=== PATIENT | female | born 1955 | race Caucasian/White ===

== ENCOUNTER → 2017-06-28 | Outpatient (CLI) | payer OTHER ==
[~2017-06-28] MED LIST: CELE-1 PO; HYDR-4309 PO; IOPAMIDOL 76% 100 ML INFUS BTL 100 ML ONE; LOR5/325 PO; NS 0.9% 50 ML VIAL 50 ML ONE; PROP40TA45 PO; SPIR25TA78 PO
--- NOTE | 2017-06-28 17:36 | RADIOLOGY IMAGING REPORT ---
FACILITY: [facility] [place] PATIENT NAME: Candice Betancourt : 1955 MR: [id number] V: [id number] EXAM DATE: ORDERING PHYSICIAN: HUNG TENORIO TECHNOLOGIST: Location: [facility] Patient: Candice Betancourt : 1955 Visit/Account:[id number] Date of Sevice: 06/28/2017 CT abdomen and pelvis with IV contrast Indication: Abdominal pain, distention and nausea. Comparison: None available. . Technique: Axial CT images were obtained through the abdomen and pelvis during injection of nonioni c iodinated intravenous contrast. Reformatted coronal and sagittal images were also obtained. One of the following dose optimization techniques was utilized in the performance of this exam: Autom ated exposure control; adjustment of the mA and/or kV according to the patient's size; or use of an i terative reconstruction technique. Specific details can be referenced in the facility's radiology C T exam operational policy. Contrast: 100 ml of Isovue-370 IV contrast. Findings: Lower lung singh: Limited views lower lung field are unremarkable. Liver: No focal parenchymal abnormality of the liver. Biliary: Status post cholecystectomy with clips in gallbladder fossa. The ventricular system is unrem arkable postcholecystectomy. Pancreas: Normal appearance. Spleen: Normal appearance. Adrenal glands: Unremarkable. Kidneys / retroperitoneum: No evidence of nephrolithiasis or hydronephrosis no discrete renal lesions . Bowel / peritoneum / mesenteries: There are couple diverticula seen along the descending sigmoid colo n without pericolonic inflammation. The remaining gastrointestinal tract visualized within normal lombardo its. The appendix not visualized. No secondary signs of appendicitis. No free air, free fluid, fluid collections or areas of inflammation. Small umbilical hernia containin g fat. Lymph node assessment: No pathologic adenopathy identified. Pelvic structures: Appear unremarkable. Vessels: No significant atherosclerotic calcifications seen throughout a nonaneurysmal abdominal aort a and branches. Musculoskeletal / Body wall: No acute or aggressive osseous abnormality. Mild degenerative changes sp ine. IMPRESSION: 1. No acute intra-abdominal abnormality 2. Diverticulosis without radiographic indication of diverticulitis. Report Dictated By: Geovany Slade at 06/28/2017 5:26 PM Report E-Signed By: Geovany Slade at 06/28/2017 5:32 PM WSN:[id number]
== END ==
LOC: CT 15:07
PROVIDERS: ATTEND Family Medicine
DX: K57.30 Diverticulosis of large intestine without perforation or abscess without bleeding (principal); Z90.49 Acquired absence of other specified parts of digestive tract
CPT/HCPCS: 74177; J7050; Q9967

== ENCOUNTER → 2017-07-04 | Outpatient (CLI) | payer OTHER ==
[~2017-07-04] MED LIST changes: -IOPAMIDOL 76% 100 ML INFUS BTL 100 ML ONE; -NS 0.9% 50 ML VIAL 50 ML ONE
--- NOTE | 2017-07-05 08:26 | RADIOLOGY IMAGING REPORT ---
FACILITY: [facility] PATIENT NAME: FLO TRAN : [id number] MR: [id number] V: [id number] EXAM DATE: [id number] ORDERING PHYSICIAN: HUNG TENORIO TECHNOLOGIST: Fariha Pretty PROCEDURE:BILATERAL DIGITAL SCREENING MAMMOGRAM WITH CAD ASSISTED INTERPRETATION AND 3D BREAST TOMOSYNTHESIS. COMPARISON:Prior mammograms dated 03/20/16, 06/03/14 and 05/16/11. INDICATIONS:SCREENING FINDINGS: A moderate amount of fibroglandular tissue is seen throughout the breasts. The parenchymal pattern has remained stable when allowing for difference in mammographic technique and patient positioning. There is no evidence of malignant appearing mass, malignant appearing calcification or secondary sign of malignancy in either breast. DIAGNOSTIC CATEGORY 2--BENIGN FINDING. RECOMMENDATIONS: ROUTINE MAMMOGRAM AND CLINICAL EVALUATION. IMPRESSION: Bi-RADS 2: No significant abnormality is seen. Images were reviewed with R2CAD and 3D breast tomosynthesis. Dictated by: Justine Disla M.D. on 07/04/2017 at 16:09 Transcribed by: GIBSON on 07/04/2017 at 18:25 Approved by: Justine Disla M.D. on 07/05/2017 at 8:25 [facility]
== END ==
LOC: MAMO 00:47
PROVIDERS: ATTEND Family Medicine
DX: Z12.31 Encounter for screening mammogram for malignant neoplasm of breast (principal)
CPT/HCPCS: 77063; 77067

== ENCOUNTER → 2017-10-23 | Outpatient (CLI) | payer OTHER ==
[~2017-10-23] MED LIST changes: +LOSA50TA68 PO; +MILK175C PO; +TRIA1CAP85 PO
--- NOTE | 2017-10-23 10:58 | EKG ---
[place] [facility] [place] NAME: FLO TRAN : [id number] MR: [id number] V: [id number] EXAM DATE: ORDERING PHYSICIAN: ELLE BETANCOURT TECHNOLOGIST: ASHIA Test Reason : DIZZINESS Blood Pressure : / mmHG Vent. Rate : 063 BPM Atrial Rate : 063 BPM P-R Int : 214 ms QRS Dur : 082 ms QT Int : 438 ms P-R-T Axes : 029 007 058 degrees QTc Int : 448 ms Sinus rhythm with 1st degree AV block Otherwise normal ECG No previous ECGs available Confirmed by JENNIFER NGUYEN ([id number]) on 10/23/2017 8:04:13 PM Referred By: SERAFIN Confirmed By:JENNIFER NGUYEN
== END ==
LOC: CARD 10:31
PROVIDERS: ATTEND Otolaryngology
DX: R42 Dizziness and giddiness (principal)
CPT/HCPCS: 93005

== ENCOUNTER → 2017-10-28 | Outpatient (CLI) | payer OTHER | LOC: LAB 15:47 | PROVIDERS: ATTEND Surgery | DX: D18.01 Hemangioma of skin and subcutaneous tissue (principal) | CPT/HCPCS: 88305 ==

== ENCOUNTER → 2017-11-11 | Outpatient (CLI) | payer OTHER ==
--- NOTE | 2017-11-13 21:18 | RT HOLTER TEST ---
FACILITY: [facility] - [place] PATIENT NAME: FLO TRAN : [id number] MR: [id number] V: [id number] EXAM DATE: ORDERING PHYSICIAN: HUNG TENORIO TECHNOLOGIST: ASHIA Hook-up date: 2017-11-11 13:09:00 Duration: 47:59:00 Test Indications: BRADYCARDIA Medications: 153131 QRS complexes 22 Ventricular ectopics which represent <1 % of total QRS comp. 1308 Supraventricular ectopics which represent <1 % of total QRS comp. * Paced QRS complexes which represent % of total QRS comp. VENTRICULAR ECTOPY 20 Isolated 0 Bigeminal Cycles 1 Couplets 0 Runs 0 Beats in Runs * Beats LONGEST at * BPM at :: -- * Beats FASTEST at * BPM at :: -- SUPRAVENTRICULAR ECTOPY 1256 Isolated 8 Couplets 4 Runs 36 Beats in Runs 26 Beats LONGEST at 152 BPM at 18:45:53 2017-11-12 3 Beats FASTEST at 157 BPM at 16:26:50 2017-11-12 HEART RATES 45 MIN at 01:44:39 2017-11-13 74 AVG 166 MAX at 18:45:55 2017-11-12 LONGEST RR 1.904 secs at 01:44:33 2017-11-13 S-T LEVELS Channel 1 -12.800 mm MIN at 13:09:00 2017-11-11 -12.800 mm MAX at 13:09:00 2017-11-11 Channel 2 -12.800 mm MIN at 13:09:00 2017-11-11 -12.800 mm MAX at 13:09:00 2017-11-11 Channel 3 -12.800 mm MIN at 13:09:00 2017-11-11 -12.800 mm MAX at 13:09:00 2017-11-11 Baseline rhythm is sinus with first degree AV block. Rare ventricular ectopy with one couplet. No runs. Occasional supraventricular ectopy with several couplets and a few short runs of what appears to be a trial fibrillation. No pauses of more than two (2) seconds wer recorded. Several episodes of ST-T changes were noted in lead 2. Confirmed by SARA TOMPKINS ([id number]) on 11/13/2017 9:18:03 PM Referred By: Overread By: SARA TOMPKINS
== END ==
LOC: RESP 12:41
PROVIDERS: ATTEND Family Medicine
DX: R00.1 Bradycardia, unspecified (principal); R42 Dizziness and giddiness
CPT/HCPCS: 93225; 93226

== ENCOUNTER → 2018-10-31 | Outpatient (CLI) | payer MEDICARE, OTHER ==
[~2018-10-31] MED LIST changes: -HYDR-4309 PO; +HYDR-653 PO; -MILK175C PO; +MILK175C2 PO; -SPIR25TA78 PO; +SPIR25TA80 PO
--- NOTE | 2018-11-04 10:18 | RADIOLOGY IMAGING REPORT ---
FACILITY: [facility] PATIENT NAME: FLO TRAN : [id number] MR: [id number] V: [id number] EXAM DATE: [id number] ORDERING PHYSICIAN: HUNG TENORIO TECHNOLOGIST: Lorna Urbano PROCEDURE: BILATERAL DIGITAL SCREENING MAMMOGRAM WITH CAD ASSISTED INTERPRETATION & 3D TOMOSYNTHESIS REASON FOR STUDY: Screening. COMPARISON: Priors. VIEWS OBTAINED: 2D & 3D full field CC & MLO. BREAST DENSITY: The breasts are heterogeneously dense. MAMMOGRAM FINDINGS: A focal asymmetry is present in the medial aspect of the Right breast at anterior depth. A few course calcifications are scattered in the Left breast. IMPRESSION: BIRADS 0: Incomplete. DIAGNOSTIC CATEGORY 0--INCOMPLETE: NEED ADDITIONAL IMAGING EVALUATION. RECOMMENDATIONS: RIGHT CC SPOT COMPRESSION VIEW, & RIGHT ML VIEW, & RIGHT BREAST ULTRASOUND IF NECESSARY BASED ON ADDITIONAL VIEWS. ADDITIONAL MAMMOGRAPHIC VIEWS REQUIRED: RIGHT BREAST IN 1 YEAR. Dictated by: Shashi Dunlap M.D. on 11/03/2018 at 14:52 Transcribed by: AUGIE on 11/03/2018 at 15:01 Approved by: Justine Disla M.D. on 11/04/2018 at 10:17 [facility]
== END ==
LOC: MAMO 02:35
PROVIDERS: ATTEND Family Medicine
DX: R92.2 Inconclusive mammogram (principal); Z80.3 Family history of malignant neoplasm of breast
CPT/HCPCS: 77063; 77067

== ENCOUNTER → 2018-11-11 | Outpatient (CLI) | payer MEDICARE, OTHER ==
--- NOTE | 2018-11-12 14:36 | RADIOLOGY IMAGING REPORT ---
[place] [facility] [place] NAME: FLO TRAN : [id number] MR: [id number] V: [id number] EXAM DATE: [id number] ORDERING PHYSICIAN: HUNG TENORIO TECHNOLOGIST: Fariha Pretty PROCEDURE:RIGHT DIGITAL MAMMOGRAM DIAGNOSTIC WITH CAD ASSISTED INTERPRETATION & 3D TOMOSYNTHESIS REASON FOR STUDY: Further evaluation. FAMILY HISTORY OF BREAST CANCER: None. BREAST PROCEDURES/TREATMENTS: None. COMPARISON STUDIES: Prior mammograms 10/31/18, 07/04/17, 03/20/16, 06/03/14. VIEWS OBTAINED: 2D & 3D full field Right MLO projections & 2D & 3D Spot compression view in the Right CC projection. BREAST DENSITY: The Right breast is heterogeneously dense which can obscure small masses. MAMMOGRAM FINDINGS: The previously noted focal asymmetry in the medial aspect of the Right breast in the anterior depth appears completely compressible and apparently represented a summation shadow. DIAGNOSTIC CATEGORY 2--BENIGN FINDING. RECOMMENDATIONS: ROUTINE MAMMOGRAM AND CLINICAL EVALUATION. IMPRESSION: BIRADS 2: Benign finding. Dictated by: Justine Disla M.D. on 11/11/2018 at 16:42 Transcribed by: AUGIE on 11/12/2018 at 9:48 Approved by: Justine Disla M.D. on 11/12/2018 at 14:36 [facility]
== END ==
LOC: MAMO 00:56
PROVIDERS: ATTEND Family Medicine
DX: R92.8 Other abnormal and inconclusive findings on diagnostic imaging of breast (principal)
CPT/HCPCS: 77061; 77065